=== PATIENT | female | born 1950 | race Caucasian/White ===

== ENCOUNTER → 2021-09-07 | Emergency (ER) | payer BC, MEDICARE ==
[~2021-09-07] VITALS: Ht 165.1 cm; Wt 90.7 kg
[~2021-09-07] MED LIST: ACET1TAB25 PO; HYDROCODONE/ACETAMINOPHEN 5/325 MG TAB PO ONE
[2021-09-07 18:35] VITALS: BP 109/68
== END ==
LOC: EDH 18:33
DX: S63.591A Other specified sprain of right wrist, initial encounter (principal); S00.91XA Abrasion of unspecified part of head, initial encounter; F41.9 Anxiety disorder, unspecified; E78.00 Pure hypercholesterolemia, unspecified; W01.0XXA Fall on same level from slipping, tripping and stumbling without subsequent striking against object, initial encounter; Y93.01 Activity, walking, marching and hiking; Y92.481 Parking lot as the place of occurrence of the external cause; Y99.8 Other external cause status
CPT/HCPCS: 73110